=== PATIENT | female | born 1990 | race African-American/Black ===

== ENCOUNTER 2022-12-26 03:25 | Observation (INO) | payer OTHER, SELFPAY ==
[2022-12-26] VITALS (15 sets, daily range): BP systolic 87–110; BP diastolic 56–77; PULSE 74–90
--- NOTE | ~2022-12-26 | US_ITS ---
EXAMINATION: 1. US OB limited 2. US OB transvaginal DATE: 12/26/2022 07:56 INDICATION: Vaginal bleeding in . Estimated gestational age of 26 weeks and 3 days. TECHNIQUE: Real-time ultrasound of the pelvis was performed. COMPARISON: None. FINDINGS: There is a single fetus in breech presentation on transabdominal images. The placenta is fundal and posterior, 2.0 cm from the cervix. heart rate is 139 beats per minute (bpm). The amniotic fluid volume is subjectively normal. The deepest vertical pocket is 6.4 cm. The cervical length is 4.6 cm on transvaginal images, which is normal. IMPRESSION: 1. Single living fetus in breech presentation. Reviewed, dictated and finalized at location A. IMPRESSION: 1. Single living fetus in breech presentation.
--- NOTE | 2022-12-26 05:27 | OBADM ---
This patient, Darwin Rosales, admitted to the OB room OB Post 115 for observation. Patient/family oriented to hospital policies and general routines including ID bracelet, bed and alarms, visiting hours, pain management, procedures, bathroom and other care routines, personal items, smoking policy, room service/diet, and visiting hours. Patient/Family are encouraged to report perceived risks to care and to ask questions if they do not understand what they are told or what they should do.
--- NOTE | 2022-12-26 08:31 | P.HP_ITS ---
H&P: HPI History of Present Illness Date/Time: 12/26/22 08:31 Chief Complaint: pt in for evaluation of vaginal bleeding. pt is a 32 y.o. 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 NST reassuring, no contractions, no complaints of pain or other symptoms. some brown after transvaginal us Review of Systems Review of Systems: All systems reviewed & are unremarkable except as noted in HPI and below Meds Home Medications and Allergies Allergies Allergy/AdvReac Type Severity Reaction Status Date / Time No Known Allergies Allergy Mild Verified 03/20/22 10:28 Vital Signs Vital Signs - 24 hr 12/26/22 03:44 12/26/22 03:46 12/26/22 04:00 Pulse Rate 76 84 85 Blood Pressure 106/68 110/64 106/71 12/26/22 04:15 12/26/22 04:30 12/26/22 04:45 Pulse Rate 74 86 82 Blood Pressure 106/62 103/70 99/70 L 12/26/22 05:00 12/26/22 05:15 12/26/22 05:30 Pulse Rate 88 80 79 Blood Pressure 108/77 101/70 108/63 12/26/22 05:45 12/26/22 06:00 12/26/22 06:15 Pulse Rate 75 78 80 Blood Pressure 98/62 L 97/57 L 96/58 L 12/26/22 06:30 12/26/22 06:46 12/26/22 07:00 Pulse Rate 83 90 80 Blood Pressure 101/60 87/56 L 103/64 Exam Const: General: cooperative and healthy appearing Chest: Chest palpation & inspection: normal inspection of the chest Resp: Effort & Inspection: normal respiratory effort and able to speak in complete sentences GI: Other: gravid Skin: General skin exam: normal color Neuro: General: patient oriented x3 Extrem: General: normal to inspection Psych: Appearance: grossly normal Assessment and Plan Assessment and plan (1) Vaginal bleeding: Code(s): N93.9 - Abnormal uterine and vaginal bleeding, unspecified Status: Acute Plan 32 y.o. at 26.3 weeks gestation vaginal bleeding, cervical length wnl placenta 2.0cm from cervical os plan discharge, not actively bleeding, monitor if any pink or red back for evaluation, pelvic rest, no lifting, obstetrical precautions given at discharge. pt has follow up on 12/31 in office
--- NOTE | 2022-12-29 14:46 | PM.OBTRLD ---
OB - Triage/Final Diagnosis Visit Information Date of evaluation: 12/27/22 Reason for evaluation: other (bleeding) Comments/Additional reasons for admission: I have assessed the risk for this patient, Darwin Rosales, and determined that she would benefit from observation care.
== END 2022-12-26 08:49 | disposition home or self-care (01) ==
PROVIDERS: Admitting Provider Obstetrics & Gynecology; Visit Provider Obstetrics & Gynecology
DX: O26.852 Spotting complicating pregnancy, second trimester (principal); O09.292 Supervision of pregnancy with other poor reproductive or obstetric history, second trimester; Z3A.26 26 weeks gestation of pregnancy
CPT/HCPCS: 76815; 76817; G0378; G0379

== ENCOUNTER 2023-03-29 18:56 | Inpatient (IN) | payer OTHER, MEDICAID, SELFPAY ==
[2023-03-29] VITALS (7 sets, daily range): BP systolic 108–117; BP diastolic 66–94; PULSE 77–90; TEMP 36.6
[2023-03-29 20:04] LABS: Basophils Percent Auto 0.2 % (0.2-1.2); Eosinophils Percent Auto 0.6 % (0-4.4); Hematocrit 33.6 % (37.0-47.0); Hemoglobin 10.7 g/dL (12.0-15.0); Immature Granulocyte Absolute 0.06 K/mm3 (0.00-0.031); Lymphocytes Absolute Auto 1.73 K/mm3 (0.9-3.2); Lymphocytes Percent Auto 27.9 % (18.3-44.2); Mean Corpuscular HGB Conc 31.8 g/dl (32-36); Mean Corpuscular Hemoglobin 25.5 pg (26-34); Mean Platelet Volume 10.3 fl (7.4-10.4); Monocytes Absolute Auto 0.7 K/mm3 (0.1-0.6); Monocytes Percent Auto 10.6 % (2.6-8.5); Neutrophils Absolute Auto 3.7 K/mm3 (1.3-6.7); Neutrophils Percent Auto 59.7 % (45.5-73.1); Platelet Count Result 252 k/mm3 (150-375); Red Cell Distribution Width 15.2 % (11.5-14.5); White Blood Count 6.2 K/mm3 (4.5-10.0)
--- NOTE | 2023-03-29 20:26 | WPDOBADMIT ---
Obstetrics - Admit Note Admission Note: record reviewed. No pertinent additions to the history and/or any subsequent changes in the physical findings that are not consistent with the expected course of the were found. IOL, elective, hx 21 week IUFD, anticipate vaginal delivery Additions to the history and/or subsequent changes in the physical findings follow. None.
[2023-03-29] MEDS: miSOPROStol 25 MCG TABLET PO (20:48)
[2023-03-29] MEDS: FAMOTIDINE 20 MG/2 ML VIAL IV PUSH (20:48)
[2023-03-29] MEDS: ONDANSETRON INJ 4 MG/2 ML VIAL IV PUSH (20:48)
[2023-03-30] VITALS (82 sets, daily range): BP systolic 65–145; BP diastolic 37–102; PULSE 63–200; RESP 14–20; TEMP 36.4–36.8; O2SAT 94–100; BMI 36.1
[2023-03-30] MEDS: miSOPROStol 25 MCG TABLET PO (00:52)
[2023-03-30] MEDS: fentaNYL CITRATE INJ (*CRX) 100 MCG/2 ML VIAL 50 MCG IV PUSH (04:06)
[2023-03-30] MEDS: LACTATED RINGERS 1,000 ML 125 ML IV CONT (04:50)
--- NOTE | 2023-03-30 05:34 | P.PNAN_ITS ---
Anes - Eval Pre Procedure Procedure: Labor epidural Date/Time: 03/30/23 05:34 Surgeon: Maribel Preop Diagnosis: Abdominal pain with contractions Pre Op Diagnosis: IOL Patient Data Age: 32 Gender: F Height: Weight: Last Vital Signs Temp 98.2 F 03/30/23 02:00 Pulse 83 03/30/23 05:01 Resp 18 03/30/23 02:00 BP 136/89 03/30/23 05:01 Pulse Ox 99 03/30/23 04:48 Allergies Allergy/AdvReac Type Severity Reaction Status Date / Time No Known Allergies Allergy Mild Verified 03/14/23 13:24 Laboratory Tests 03/29/23 19:51 WBC 6.2 K/mm3 (4.5-10.0) RBC 4.20 M/mm3 (4.2-5.4) Hgb 10.7 L g/dL (12.0-15.0) Hct 33.6 L % (37.0-47.0) MCV 80.0 fl (80-100) MCH 25.5 L pg (26-34) MCHC 31.8 L g/dl (32-36) RDW 15.2 H % (11.5-14.5) Plt Count 252 k/mm3 (150-375) MPV 10.3 fl (7.4-10.4) Immature Gran % (Auto) 1.0 H % (0-0.5) Neut % (Auto) 59.7 % (45.5-73.1) Lymph % (Auto) 27.9 % (18.3-44.2) [place] % (Auto) 10.6 H % (2.6-8.5) Eos % (Auto) 0.6 % (0-4.4) Baso % (Auto) 0.2 % (0.2-1.2) Lymph # (Auto) 1.73 K/mm3 (0.9-3.2) [place] # (Auto) 0.7 H K/mm3 (0.1-0.6) Eos # (Auto) 0.0 K/mm3 (0-0.3) Baso # (Auto) 0.0 K/mm3 (0.0-0.1) Abs Immat Gran (auto) 0.06 H K/mm3 (0.00-0.031) Absolute Neuts (auto) 3.7 K/mm3 (1.3-6.7) Absolute Nucleated RBC 0.0 K/mm3 (0.0-0.012) Nucleated RBC % 0.0 % (0.0-0.2) RPR Pending Blood Type B Positive Antibody Screen Negative : gestational age HCG: positive Patient hx anesthesia problems: none Family hx anesthesia problems: none Results Review: All pre-operative results and documents have been reviewed as part of the pre- operative evaluation. [facility] Past Medical History Medical History Anxiety and depression Obesity Post depression and not yet delivered Family History Family History Mother Congestive heart failure Hypertension Father Colon cancer Grandparent Diabetes mellitus Social History Social History Smoking status: Never smoker Second hand tobacco smoke exposure: No Substance use: never Lack of Transportation: No Lack of Food: Never True Current Housing: I Have Housing Concerned About Future Housing: No Difficulty Paying Gas/Electric Bills: No Difficulty Paying for Meds: No Currently Unemployed: No Education: Trade/Vocational Certificate Difficulty w/ Childcare or Family Care: No Spiritual care concerns: No Exam Day of Procedure 03/30/23 05:34 Patient weight: obese Airway: Mallampati scale class II
[2023-03-30 05:38] LABS: Rapid Plasma Reagin Non-Reactive (NonReactive)
[2023-03-30] MEDS: OXYTOCIN 30 UNITS/NS 500 ML 30 UNITS/500 ML BAG 999 UNITS IV CONT (07:52)
--- NOTE | 2023-03-30 08:03 | PM.OBPRVD ---
OB - Delivery Note Procedure Delivery date: 03/30/23 Procedure: Induction method: Per Misoprostol Protocol Delivery monitor: External FHT and External Uterine Route of delivery: Laceration Description: Perineal - 1st Degree Delivery repair: vicryl Specimen: No Quantitative Blood Loss (ml): 200 Anesthesia type: Epidural Disposition: Floor [place] Baby Date of : 03/30/23 Time of : 07:48 Weeks of gestation at delivery: 39 gender: Male presentation: vertex position: Left Occiput Anterior Placenta delivery description: Spontaneous Cord Vessel Description: 3 Vessels, Clamped/Cut, Delayed Cord Clamping and Around Body (x1) score one minute: 9 score five minutes: 9 Narrative: mother and baby in stable condition
[2023-03-30] MEDS: OXYTOCIN 30 UNITS/NS 500 ML 30 UNITS/500 ML BAG 125 UNITS IV CONT (08:24)
[2023-03-30] MEDS: ACETAMINOPHEN 325 MG TABLET 650 MG PO ×2 (11:08→22:42)
[2023-03-30] MEDS: MULTIVIT/MIN/PREN/FOL AC/IRON TABLET 1 TAB PO (11:09)
[2023-03-30] MEDS: DOCUSATE SODIUM 100 MG CAPSULE PO (11:09)
[2023-03-30] MEDS: SIMETHICONE 80 MG TAB.CHEW PO (11:09)
--- NOTE | 2023-03-30 12:05 | PC.NURSE ---
Patient transferred to post room #283 via wheelchair. Support person present. Oriented to unit, room, information board, rooming in, admission packet and security measures. Patient verbalizes understanding.
[2023-03-31 00:25] VITALS: BP 107/64; PULSE 65; RESP 18; TEMP 36.5; O2SAT 97
[2023-03-31 01:38] LABS: Hemoglobin 10.5 g/dL (12.0-15.0)
--- NOTE | 2023-03-31 06:28 | PM.OBPNVD ---
OB - PN: Subj Subjective Date/time seen: 03/31/23 06:28 Patient comments: no complaints and pain well controlled baby status: doing well Narrative: Desires DC home today. OB - PN: Obj Data Labs 03/31/23 00:29 Labs: Laboratory Results - last 24 hr 03/31/23 00:29 Hgb 10.5 L Hct 34.0 L OB - PN A/P Plan day: 1 Plan: routine care and discharge home Comments: consented for circumcision Time Spent With Patient Time: Total time spent is greater than 50% in coordination of care (as documented) at patient's floor/unit and/or counseling patient: Time with patient: less than 15 minutes Exam Narrative: NAD abdomen soft, nontender, fundus firm below the umbilicus Extremities nontender, 1+ edema
--- NOTE | 2023-03-31 06:30 | PM.OBDSVD ---
DS: Admitting Diagnosis Discharge Date 03/31/23 Admitting Diagnosis term IUP, induction of labor DS: Discharge Diagnosis Discharge Diagnosis (1) , delivered: Code(s): O80 - Encounter for full-term uncomplicated delivery Status: Acute OB - DS: Summary Hospital Course Hospital Course: Pt was admitted for elective IOL. She proceeded to have an uncomplicated vaginal delivery and course and was DCed home on PPD 1. OB Procedures : None OB Procedures Intrapartum: Spontaneous Vag Delivery OB Procedures: : None Peripartum Data Delivery Method: Natural Vaginal complications: none Status at Discharge Functional status at discharge: independent ambulation Time Spent with Patient Time attestation: Total time spent providing and/or coordinating discharge services: Exam Narrative: NAD abdomen soft, appropriately tender Ext non tender, 1+ edema DS: Data Data Completed and Pending Labs on day of discharge: Labs from last 24 hours 03/31/23 00:29 Hgb 10.5 L Hct 34.0 L Discharge Plan Discharge Attending physician on discharge: Shital Urena Discharging Clinician: Shital Urena Anticipated Discharge Date/Time: 03/31/23 06:29 Patient Disposition: Home, Self-Care Activity: pelvic rest Diet: regular Patient Instructions: Antibiotic Form Stand Alone Forms: General Discharge Information Follow-up/Referrals: Shital Urena MD [Physician] - 4 Weeks Discharge Medications: No Action No Home Medications Date of admission: 03/29/23 18:56 Primary Care Provider: PHYSICIAN NOT ON STAFF,NONSTAFF Admitting Provider: Tiffany López Attending physician on admission: Tiffany López Condition: Stable
--- NOTE | 2023-03-31 07:43 | WPDANLDPN2 ---
Anes-Prog Note L&D Date/Time: 03/31/23 07:43 Comfortable throughout: labor and delivery Neuraxial method: epidural Epidural/Spinal procedure site: clean & non-tender Neuro status: Neuro function grossly intact. Cardiovascular status: normal Respiratory status: normal Airway patency: baseline Mental status: baseline Post-Op hydration status: normal Vital Signs: Last Vital Signs Temp 36.5 C 03/31/23 00:25 Pulse 65 03/31/23 00:25 Resp 18 03/31/23 00:25 BP 107/64 03/31/23 00:25 Pulse Ox 97 03/31/23 00:25 O2 Del Method Room Air 03/31/23 00:25 Pain score (VAS): 09/30 I/O: Intake & Output 03/30/23 03/30/23 03/31/23 15:59 23:59 07:59 Intake Total 500 Output Total 310 Balance 190 Post-procedural complaints: none Patient feedback: Patient satisfied with anesthetic care.
[2023-03-31] MEDS: IBUPROFEN 600 MG TABLET PO (08:13)
[2023-03-31] MEDS: DOCUSATE SODIUM 100 MG CAPSULE PO (08:14)
[2023-03-31] MEDS: MULTIVIT/MIN/PREN/FOL AC/IRON TABLET 1 TAB PO (08:14)
[2023-03-31 08:50] VITALS: BP 110/79; PULSE 77; RESP 18; TEMP 36.6; O2SAT 98
--- NOTE | 2023-03-31 13:09 | PC.NURSE ---
Patient viewed the discharge video Mother & Baby Care, The First Two Weeks . Patient was given the opportunity and encouraged to ask questions. Patient verbalized understanding of information shared and has been given the mother/baby guide for home reference.
--- NOTE | 2023-03-31 15:59 | PC.NURSE ---
[id number] Introductions were made, then consulted with patient to assess needs related to . Mother led the conversation with her?plans to feed?her infant and the?experience so far. Resources provided for inpatient and outpatient services with the feeding sheet, mom/baby guide and name written on the white board. Encouraged understanding of the benefits of skin to skin (demonstrating unwrapping infant and placing upright on her chest), stimulating with massage touch, changing positions to encourage wakefulness, how to watch for early feeding cues, responsive feeding, feeding on demand (aiming for 8-12 times in 24 hours, about every 2-3 hours), milk production, building/maintaining a milk supply, duration of feeding, signs of adequate intake/output and how to record on the feeding sheet. Reviewed positioning and ear, shoulder, hip alignment, supporting the breast to facilitate a deep latch, asymmetrical latch (off-center), leading with the chin with a big, open, wide gape and body close to mother. latched optimally to the left/right breast in cross cradle position. Education given to mother of how to visualize suck/swallow ratios and listen for drinking at the breast. did not breastfeed for more than a few minutes on each breast, however; mother denied pain and infant demonstrated good rocking motion with rare swallowing. Nipple care reviewed with optimal latch and good positioning. We practiced hand expression to encourage and stimulate. displays gagging and was circumcised this morning. Recommended parents staying for 48 hours related to this is her first time a infant and mother states she wants to go home today Reviewed good handwashing when or touching the breast/nipples to prevent infection. Resources used to facilitate learning were used with the visual handouts/QR codes/ tool/mom and baby guide. Mother voiced understanding of skin to skin, stimulating with massage touch, responsive feedings, hand expressed colostrum, talking to to encourage if it has been 2 -2.5 hours since the start of the last , to call if infant does not latch, or if there is discomfort with . Resources provided for inpatient/outpatient with feeding sheet and the mom/baby guide. Mother voiced understanding of information and will call if there is a request for assistance. Reported to the primary RN. [id number] Mother called for a consult with before she goes home. Mother led the conversation with her experience and plan to feed her infant so far and her ability to independently latch infant optimally without discomfort. Reminded parents to use good handwashing technique to prevent infection. Mother is feeding appropriately for growth of infant and understands stimulating to eat if needed. Infant has had adequate feedings in the last 24 hours meets the outcomes for weight, output and jaundice (reviewed the importance of waking infant to feed every 2-3 hours and only one 4-5 hour rest in 24 hours. Mother states she is confident to continue to breastfeed more now than she ever has with her other two children. Mother will pump if doesn't latch and supplement with breastmilk her infant at home, when to call for assistance and denies any additional assistance or education at this time. Reinforced understanding of milk production, transition of milk, signs of adequate intake, transition of stool, prevention/relief of engorgement, responsive watching for feeding cues, the different methods of stimulating to breastfeed 2-3 hours after the start of the last feeding, community resources, medication information reviewed per [facility] and when to call a provider using the resource of the mom and baby guide/[facility] website. Mother voiced understanding of the education shared. Reported to the primary RN.
== END 2023-03-31 13:40 | disposition home or self-care (01) | DRG 807 ==
LOC: ANHLDR 19:20 → ANHOB2 03-30 14:21 → ANHLDR 04-01 09:21 → ANHOB2 04-01 09:21
PROVIDERS: Advanced Practice Midwife; Admitting Provider Obstetrics & Gynecology; Visit Provider Obstetrics & Gynecology
DX: O32.6XX0 Maternal care for compound presentation, not applicable or unspecified (principal); Z37.0 Single live birth; Z3A.39 39 weeks gestation of pregnancy; O70.0 First degree perineal laceration during delivery; O69.2XX0 Labor and delivery complicated by other cord entanglement, with compression, not applicable or unspecified
CPT/HCPCS: 36415; 85014; 85018; 85025; 86592; 86850; 86900; 86901; A9270; J2405; J2590; J2795; J3010; J7120

== ENCOUNTER 2023-11-20 19:45 | Emergency (ER) | payer OTHER, MEDICAID, SELFPAY ==
[2023-11-20 20:31] VITALS: BP 122/86; PULSE 98; RESP 18; TEMP 36.6; O2SAT 99
[2023-11-20 22:40] VITALS: BP 139/91; PULSE 88; RESP 18; O2SAT 99
--- NOTE | 2023-11-20 23:04 | ED.GENADULT ---
[facility] - General Adult General Chief complaint: Anxiety Stated complaint: anxiety attack Time Seen by Provider: 11/20/23 22:37 Source: patient Mode of arrival: ambulatory Limitations: no limitations History of Present Illness HPI narrative: This is a 32-year-old female who presents to the ED for chief complaint of anxiety attack that happened on her way home from work today. She reports she had a verbal altercation with her boss at work today. She reports she has had a couple of these over the past several months and it seems to be boiling over so to speak. Reports that she started to have some hyperventilation and full body tingling and her jaw locking up. This caused her great concern is this is never happened before. She is following up with PCP on anxiety and taking Lexapro as prescribed. She is trying to get back into counseling. Denies ARIES GODFREY. Related Data Home Medications Medication Instructions Recorded Confirmed escitalopram oxalate 10 mg tablet mg 11/20/23 Allergies Allergy/AdvReac Type Severity Reaction Status Date / Time No Known Allergies Allergy Mild Verified 11/20/23 20:34 Review of Systems Review of Systems: All systems as dictated in [facility] Past Medical History Medical History Anxiety and depression Obesity Post depression and not yet delivered Family History Family History Mother Congestive heart failure Hypertension Father Colon cancer Grandparent Diabetes mellitus Social History Social History Smoking status: Never smoker Second hand tobacco smoke exposure: No Substance use: never Substance use type: unknown Lack of Transportation: No Lack of Food: Never True Current Housing: I Have Housing Concerned About Future Housing: No Difficulty Paying Gas/Electric Bills: No Difficulty Paying for Meds: No Currently Unemployed: No Education: Trade/Vocational Certificate Difficulty w/ Childcare or Family Care: No Spiritual care concerns: No Exam Narrative: GENERAL: Well-appearing, well-nourished, and in no acute distress. HEAD: Normocephalic, atraumatic. EYES: PERRLA and EOMI. ENT: Nares clear, no rhinorrhea or epistaxis. Mucous membranes moist. Oropharynx without tonsillar hypertrophy exudate or other lesions. NECK: Supple. No adenopathy or masses. CHEST: No respiratory distress. Clear to auscultation. No wheezes rales or rhonchi HEART: Regular rate and rhythm. No murmur heard. Normal peripheral pulses. ABDOMEN: Soft, nontender, nondistended, normal active bowel sounds. MSK: Normal range of motion. No edema. SKIN: Warm, dry, no rash. NEURO: Alert and oriented x3. No focal deficits. PSYCH: Normal mood and affect. Course Vital Signs Vital signs: Vital Signs Temperature 97.8 F 11/20/23 20:31 Pulse Rate 98 11/20/23 20:31 Respiratory Rate 18 11/20/23 20:31 Blood Pressure 122/86 11/20/23 20:31 Pulse Oximetry 99 11/20/23 20:31 Oxygen Delivery Room Air 11/20/23 20:31 Temperature 97.8 F 11/20/23 20:31 Pulse Rate 82 11/20/23 23:28 Respiratory Rate 18 11/20/23 23:28 Blood Pressure 126/82 11/20/23 23:28 Pulse Oximetry 100 11/20/23 23:28 Oxygen Delivery Room Air 11/20/23 20:31 Medical Decision Making MDM Narrative Medical decision making narrative: This is a 32-year-old female who presents to the ED with chief complaint of anxiety attack after work today. Vitals are normal. Patient has calmed down feels these at the time of my evaluation. Denies SI or HI. No current complaints. She feels comfortable going home and following up with PCP and her counselor. She will continue taking her medications as prescribed. Hydroxyzine given for acute episodes of anxiety Pt will be discharged in stable condition. Return prec
[2023-11-20 23:28] VITALS: BP 126/82; PULSE 82; RESP 18; O2SAT 100
== END 2023-11-20 23:30 | disposition home or self-care (01) ==
PROVIDERS: Emergency Provider Physician Assistant
DX: F41.9 Anxiety disorder, unspecified (principal); E66.9 Obesity, unspecified; Z68.28 Body mass index [BMI] 28.0-28.9, adult; F32.A Depression, unspecified
CPT/HCPCS: 99283

== ENCOUNTER 2024-02-16 13:22 | Outpatient (CLI) | payer OTHER, MEDICAID, SELFPAY ==
--- NOTE | ~2024-02-16 | MMUS_ITS ---
EXAMINATION: MM diagnostic nina BI w elvin, US breast BI complete HISTORY: Bloody nipple discharge TECHNIQUE: Additional 3-D tomosynthesis images of the breasts were performed and synthetic 2-D images were generated. CAD analysis was submitted and interpreted. High resolution bilateral complete breas t ultrasound was performed. COMPARISON: None BREAST PARENCHYMAL COMPOSITION: Not dense: There are scattered areas of fibroglandular density. FINDINGS: MAMMOGRAPHIC FINDINGS: There are no suspicious masses, calcifications or architectural distortion in either breast to sugges t malignancy. ULTRASOUND: Complete bilateral US of all 4 quadrants of the breasts and retroareolar region was reviewed. Normal heterogeneous echotexture without focal solid or cystic mass. Mildly prominent ducts present in the 4 :00 position of the right breast near the nipple. IMPRESSION: 1. No evidence for malignancy in either breast. 2. Recommend further evaluation with MRI of the breast for complete evaluation of bloody nipple disch arge. BI-RADS CATEGORY 0 - INCOMPLETE STUDY, NEED ADDITIONAL IMAGING EVALUATION. Reviewed, dictated and finalized at location B. IMPRESSION: 1. No evidence for malignancy in either breast. 2. Recommend further evaluation with MRI of the breast for complete evaluation of bloody nipple discharge. BI-RADS CATEGORY 0 - INCOMPLETE STUDY, NEED ADDITIONAL IMAGING EVALUATION.
== END 2024-02-16 13:23 | disposition home or self-care (01) ==
PROVIDERS: Visit Provider Advanced Practice Midwife
DX: N64.52 Nipple discharge (principal); R53.83 Other fatigue
CPT/HCPCS: 76641; 77062; 77066; G0279